=== PATIENT | male | born 1975 | race Caucasian/White ===

== ENCOUNTER 2018-03-21 21:52 | Emergency (ER) | payer BC, OTHER ==
[2018-03-22] MEDS: KETOROLAC 60 MG INJ IM (00:16)
[2018-03-22] MEDS: DIAZEPAM 5 MG/ML SYG IM (00:17)
== END 2018-03-22 01:01 | disposition home or self-care (01) ==
LOC: E/R 03-22 01:01
DX: M54.2 Cervicalgia (principal)
CPT/HCPCS: 72125; 96372; 99285-25